=== PATIENT | male | born 1960 | race Caucasian/White ===

== ENCOUNTER 2017-03-04 17:34 | Emergency (ER) | payer OTHER ==
[~2017-03-04] VITALS: Ht 185.4 cm; Wt 77.1 kg
[2017-03-04 18:29] LABS: BASOPHIL# 0.1 X10e3 (0-0.3); BASOPHIL% 0.9 % (0-2.5); EOSINOPHIL# 0.1 X10e3 (0-0.7); EOSINOPHIL% 2.2 % (0.0-7.0); HEMATOCRIT 39.1 % (38.0-50.0); HEMOGLOBIN 13.5 gm/dL (13.0-16.0); LYMPHOCYTE# 2.5 X10e3 (1.0-3.5); LYMPHOCYTE% 40.1 % (17.0-45.0); MEAN CELL VOLUME 104.8 FL (83-96); MEAN CORPUSCULAR HEMOGLOBIN 36.3 PG (28-34); MEAN CORPUSCULAR HGB CONC 34.6 g/dL (30-36); MEAN PLATELET VOLUME 7.3 FL (6.5-11.5); MONOCYTE# 0.9 X10e3 (0-1.0); MONOCYTE% 13.9 % (3.0-12.0); NEUTROPHIL# 2.7 X10e3 (1.5-7.1); NEUTROPHIL% 42.9 % (40-75); PLATELET COUNT 156 X10e3 (140-420); RED BLOOD COUNT 3.73 X10e (3.90-5.60); RED CELL DISTRIBUTION WIDTH 14.2 % (11.0-15.5); WHITE BLOOD COUNT 6.3 X10e3 (4.0-10.5)
[2017-03-04 18:30] LABS: DIFF IND NO
[2017-03-04 18:42] LABS: PARTIAL THROMBOPLASTIN TIME 28.9 SECONDS (23.5-31.3); PROTHROMBIN TIME (PATIENT) 11.3 SECONDS (10.0-11.7)
[2017-03-04 18:53] LABS: ALBUMIN SERUM 3.6 g/dL (3.5-5.0); ALKALINE PHOSPHATASE 99 U/L (32-92); ALT (SGPT) 14 U/L (10-40); AST (SGOT) 27 U/L (10-42); BILIRUBIN, DIRECT 0.1 mg/dL (0.0-0.2); BILIRUBIN,INDIRECT 0.4 mg/dL (0.0-0.9); BILIRUBIN,TOTAL 0.5 mg/dL (0.2-2.0); CALCIUM SERUM 8.9 mg/dL (8.4-10.2); CARBON DIOXIDE 28 mmol/L (22-31); CHLORIDE 96 mmol/L (100-111); CREATININE SERUM 0.6 mg/dL (0.6-1.4); GLOM FILT RATE Estimated 111.7 mL/min (>60); GLUCOSE FASTING 97 mg/dL (70-110); POTASSIUM 3.5 mmol/L (3.5-5.1); PROTEIN TOTAL SERUM 7.7 g/dL (6.0-8.3); SALICYLATE <4.0 mg/dL; SODIUM 132 mmol/L (135-145)
[2017-03-04 18:55] LABS: ACETAMINOPHEN <10 ug/mL; ALCOHOL BLOOD 315 mg/dL (0); BLOOD UREA NITROGEN <5 mg/dL (9-23); BUN/CREATININE RATIO 8.33
[2017-03-04 19:39] LABS: AMPHETAMINE NEG (NEG); BARBITURATES NEG (NEG); BENZODIAZEPINES NEG (NEG); COCAINE NEG (NEG); MARIJUANA NEG (NEG); OPIATES NEG (NEG); TRICYCLIC ANTIDEPRESSANTS NEG (NEG); U METHADONE NEG (NEG)
== END 2017-03-05 05:15 | disposition short-term general hospital (02) ==
LOC: CED 17:34
PROVIDERS: Emergency Medicine
DX: F10.129 Alcohol abuse with intoxication, unspecified (principal); K21.9 Gastro-esophageal reflux disease without esophagitis
CPT/HCPCS: 36415; 80048; 80076; 80307; 84484; 85025; 85610; 85730; 96365; 96366; 96375; 99285; C9113; G0480; J3411; J3475

== ENCOUNTER 2017-03-04 23:00 | Inpatient (IN) | payer OTHER ==
[~2017-03-04] VITALS: Ht 182.9 cm; Wt 77.1 kg
--- NOTE | ~2017-03-04 | HP ---
Unit #: [id number] #: [id number] Patient: KENNEDY POND [id number] [place] [address] [id number] MR#: [id number] NAME: KENNEDY POND. ROOM: [facility] Age: 56 Sex: M Admission Date: 03/05/2017 : 1960 Attending Physician: Chuck Muller M.D. Admitting Physician: Chuck Muller M.D. Primary Care Physician: Primary Care Physician No HISTORY AND PHYSICAL HISTORY OF PRESENT ILLNESS Kennedy is a 56 year old admitted to [facility] because of his abuse of alcohol. PAST MEDICAL HISTORY Long history of alcohol abuse. PAST SURGICAL HISTORY Inguinal hernia repair. ALLERGIES No known drug allergies. SOCIAL HISTORY He does not smoke, drinks a 12-pack of beer on a daily basis. Denies illicit drug use. FAMILY HISTORY Medically noncontributory. REVIEW OF SYSTEMS CONSTITUTIONAL: No fever or chills. HEENT: Denies any sore throat, ear pain or runny nose. CARDIOVASCULAR: Denies chest pain, irregular heart rhythm or palpitations. CHEST: Denies shortness of breath or cough. No hemoptysis. GASTROINTESTINAL: Denies nausea, vomiting, diarrhea or chronic constipation. ENDOCRINE: Denies history of increased thirst or urination. No recent significant weight loss or gain. GENITOURINARY: Denies dysuria, frequency, or hematuria. SKIN: Denies any rashes. HEMATOLOGIC: Denies history of increased bleeding or bruising. MUSCULOSKELETAL: Denies any hot, swollen joints. No generalized muscle pain. NEUROLOGIC: Denies problems with vision or speech. No frequent, severe headaches. No numbness, tingling or weakness in any extremities. Denies loss of bladder or bowel control. CURRENT MEDICATIONS Detox protocol. PHYSICAL EXAMINATION Unit #: [id number] #: [id number] Patient: KENNEDY POND GENERAL: Alert, appearing much much older than his stated age of 56, in no apparent distress. VITAL SIGNS: Blood pressure 110/80, heart rate 90, respirations 16, temperature 98.6. WEIGHT: 170 pounds. HEIGHT: 6'0". SKIN: Warm and dry without rash or lesion. HEENT: Normocephalic. TMs not viewed. Oral and nasal passages clear. Conjunctivae clear. Pupils equal, round and reactive to light and accommodation. Extraocular movements intact. NECK: Supple without lymphadenopathy or thyromegaly. HEART: Regular rate and rhythm without murmur. LUNGS: Clear. ABDOMEN: Soft, nontender. : Not done. EXTREMITIES: No evidence of cyanosis, clubbing or edema. Moves all extremities without focal deficit. NEUROLOGICAL: Grossly within normal limits. Cranial Nerves: II: Visual powell are intact. III, IV AND : Extraocular movements are intact. Pupils are equal, round and reactive to light. V: Facial sensation is grossly normal. VII: Facial movements and expression are normal. VIII: Auditory acuity grossly intact. IX, X: Uvula is midline. Phonation is normal. XI: Patient shrugs shoulders and turns head normally. XII: Tongue protrudes in the midline. Sensory and Motor Function: Sensory and motor sensation is grossly normal. Motor: moves all extremities well. Coordination: Gait is normal. Deep Tendon Reflexes: Intact. IMPRESSION Psychiatric admission RECOMMENDATIONS PSYCHIATRIC: Per psychiatrist. MEDICAL: I see no contraindications to participating in facility's activities. MEDICAL PROGNOSIS Good. MEDICAL CONDITION Stable. Dictated by... Catherine Herr P.A.-C. for Tanvi Motley/margoth TD: 03/06/2017 00:53 JOB #: [id number] Unit #: [id number] #: [id number] Patient: KENNEDY POND HISTORY AND PHYSICAL Page 1 of 1 X Catherine Herr HISTORY AND PHYSICAL
--- NOTE | ~2017-03-04 | PN ---
Unit #: [id number] #: [id number] Patient: KENNEDY POND [id number] [facility] [address] [place] [address] [id number] MR#: [id number] NAME: KENNEDY POND ROOM: P174 Age: 56 Sex: M Admission Date: 03/05/2017 : 1960 Attending Physician: Chuck Muller M.D. Admitting Physician: Chuck Muller M.D. Primary Care Physician: Primary Care Physician Rachel PIZARRO PROGRESS NOTES DATE OF SERVICE 03/06/2017 DISCUSSION Kennedy is showing improvement today. He is much more steady on his feet and has rhva-jq-[id number] detox symptoms. He is alert and fully oriented and his thought processes are nonpsychotic although concrete. He denies suicidal ideation, intent or plan. ASSESSMENT Alcohol dependence. PLAN We will continue current treatment plan anticipating discharge in the near future. Dictated by... Tanvi Cruz/margoth TD: 03/08/2017 03:51 JOB #: [id number] [facility] PROGRESS NOTES Page 1 of 1 X Chuck Muller MD PROGRESS NOTE
--- NOTE | ~2017-03-04 | PA ---
Unit #: [id number] #: [id number] Patient: KENNEDY POND [id number] [place] [address] [id number] MR#: [id number] NAME: KENNEDY POND. ROOM: 74 Age: 56 Sex: M Admission Date: 03/05/2017 : 1960 Date of Assessment: 03/05/2017 Attending Physician: Chuck Muller M.D. Admitting Physician: Chuck Muller M.D. Primary Care Physician: Primary Care Physician No PSYCHIATRIC ASSESSMENT DATE OF SERVICE 03/05/2017 INFORMANTS The patient, reliable; [facility], reliable; [facility], reliable. CHIEF COMPLAINT Alcohol dependence. HISTORY OF PRESENT ILLNESS Kennedy is a 56-year-old man, who was brought to the hospital in an inebriated and confused state. He could not recall how he got to the hospital and reports he has been drinking alcohol daily since the age of 13. He had no suicidal ideation, intent, or plan, but appeared decompensated and was admitted for alcohol detox. PAST PSYCHIATRIC HISTORY There is no previous record of admissions to this facility. The patient does not take any psychiatric medications. FAMILY PSYCHIATRIC HISTORY The patient's father was an alcoholic and his brother also of complications of alcoholism. SOCIAL HISTORY The patient denies any history of childhood abuse or neglect. He is a single heterosexual man with no current partner. He is a high-school graduate, who is on long-term disability and currently lives alone. PAST MEDICAL HISTORY Significant for GERD, asthma, and back pain. MEDICATIONS The patient takes Tagamet and an albuterol inhaler. ALLERGIES No known medication allergies. SUBSTANCE USE HISTORY As noted, the patient is a daily drinker of alcohol and has been since his early teenage years. He is unable to provide a history of periods of sobriety. Unit #: [id number] #: [id number] Patient: KENNEDY POND MENTAL STATUS EXAMINATION Kennedy was presented as a disheveled man, appearing older than his stated age. His gait was unsteady and he required the assistance of staff to stand and walk. He also demonstrated significantly stooped gait. His speech was soft and mumbled, although easy to understand. Musculoskeletal examination was impaired as noted above. His mood was somewhat irritable with a congruent affect. He was alert and oriented to person and location, but not situation or time. His memory and concentration were only fair and his thought processes appeared somewhat stilted. He did not appear confused and did not endorse any confusion upon mental status examination. He had no suicidal ideation, intent, or plan. Insight and judgment were fair. Fund of knowledge and abstraction were fair. ASSETS AND LIABILITIES The patient has disability income and relationships with caregivers. Liabilities include chronic alcoholism. ADMITTING DIAGNOSES AXIS I: Alcohol dependence with withdrawal, uncomplicated, F10.230. AXIS II: No diagnosis. AXIS III: Gastroesophageal reflux disease, history of asthma. AXIS IV: AXIS V: PSYCHIATRIC PLAN The patient was admitted and placed on the alcohol detox protocol. Physical examination and baseline laboratory studies will be ordered and reviewed and staff assistance will be provided for ambulation safely. He will enroll in dual diagnosis groups and activities. TREATMENT GOALS Resolution of intoxication, improvement in insight, and improvement in coping skills. DISCHARGE PLANNING Follow up with AA and primary care physician. ESTIMATED LENGTH OF STAY 5 days. Dictated by... Chuck Muller M.D. [facility]/shey TD: 03/06/2017 17:16 JOB #: [id number] Unit #: [id number] #: [id number] Patient: FRANCISCO JAVIER PONDOLAYamel Rosa PSYCHIATRIC ASSESSMENT Page 1 of 1 X Chuck Muller MD PSYCHIATRIC ASSESSMENT
[2017-03-06 09:54] LABS: BASOPHIL% 0.9 % (0-2.5); EOSINOPHIL# 0.1 X10e3 (0-0.7); EOSINOPHIL% 2.1 % (0.0-7.0); HEMATOCRIT 37.1 % (38.0-50.0); HEMOGLOBIN 12.6 gm/dL (13.0-16.0); LYMPHOCYTE# 1.6 X10e3 (1.0-3.5); LYMPHOCYTE% 30.4 % (17.0-45.0); MEAN CELL VOLUME 105.7 FL (83-96); MEAN CORPUSCULAR HEMOGLOBIN 35.8 PG (28-34); MEAN CORPUSCULAR HGB CONC 33.8 g/dL (30-36); MEAN PLATELET VOLUME 7.9 FL (6.5-11.5); MONOCYTE# 0.8 X10e3 (0-1.0); MONOCYTE% 15.8 % (3.0-12.0); NEUTROPHIL# 2.6 X10e3 (1.5-7.1); NEUTROPHIL% 50.8 % (40-75); PLATELET COUNT 120 X10e3 (140-420); RED BLOOD COUNT 3.51 X10e (3.90-5.60); RED CELL DISTRIBUTION WIDTH 14.4 % (11.0-15.5); WHITE BLOOD COUNT 5.1 X10e3 (4.0-10.5)
[2017-03-06 09:57] LABS: DIFF IND YES
[2017-03-06 10:20] LABS: PLATELET ESTIMATE DECREASED (NORMAL)
[2017-03-06 10:43] LABS: BILIRUBIN,TOTAL 0.9 mg/dL (0.2-2.0); BUN/CREATININE RATIO 7.14; CALCIUM SERUM 8.6 mg/dL (8.4-10.2); CREATININE SERUM 0.7 mg/dL (0.6-1.4); GLOM FILT RATE Estimated 104.8 mL/min (>60); POTASSIUM 3.7 mmol/L (3.5-5.1); PROTEIN TOTAL SERUM 6.3 g/dL (6.0-8.3)
[2017-03-07 09:38] LABS: URINE APPEARANCE CLEAR; URINE BILIRUBIN NEG (NEG); URINE BLOOD NEG (NEG); URINE COLOR YELLOW; URINE GLUCOSE NEG (NEG); URINE KETONE NEG (NEG); URINE LEUKOCYTE ESTERASE NEG (NEG); URINE NITRATE NEG (NEG); URINE PH 6.5 (5-8); URINE PROTEIN NEG (NEG); URINE SPECIFIC GRAVITY 1.009 (1.003-1.035); URINE UROBILINOGEN 0.2 MG/DL (NEG)
[2017-03-07 09:58] LABS: CULTURE INDICATED? NO
[2017-03-07 10:47] LABS: AMPHETAMINE NEG (NEG); BARBITURATES POS (NEG); BENZODIAZEPINES POS (NEG); COCAINE NEG (NEG); MARIJUANA NEG (NEG); OPIATES NEG (NEG); TRICYCLIC ANTIDEPRESSANTS NEG (NEG); U METHADONE NEG (NEG)
== END 2017-03-07 13:50 | DRG 897 ==
LOC: P1E 03-05 05:49
PROVIDERS: Psychiatry & Neurology Psychiatry
PROC: HZ2ZZZZ Detoxification Services for Substance Abuse Treatment (ICD-10-PCS; principal; 2017-03-05)
DX: F10.230 Alcohol dependence with withdrawal, uncomplicated (principal); J45.909 Unspecified asthma, uncomplicated; K21.9 Gastro-esophageal reflux disease without esophagitis; Y90.8 Blood alcohol level of 240 mg/100 ml or more
CPT/HCPCS: 80053; 80307; 81003; 85025